=== PATIENT | male | born 1975 | race Caucasian/White ===

== ENCOUNTER 2023-03-05 23:18 | Emergency (ER) | payer OTHER ==
[2023-03-05] MEDS ORDERED: AMOX TR/POT CLAV 875MG/125MG TABLETS (FP) PO ONE (23:23)
[2023-03-05] MEDS ORDERED: LIDO 2%/EPI 1:200000 PRESRVFRE (20 ML SDVIAL) ONE (23:27)
[2023-03-05 23:28] VITALS: BP 107/73; PULSE 79; RESP 18; TEMP 98.1; BMI 24.1
[2023-03-05] MEDS ORDERED: LIDOCAINE 2%/EPINEPHRINE 1:100000 (50 ML MD VIAL) INF ONE (23:28)
[2023-03-05] MEDS ORDERED: AMOX TR/POT CLAV 875MG/125MG TABLETS (FP) ONE (23:30)
== END 2023-03-06 00:11 | disposition home or self-care (01) ==
LOC: FER 23:18
PROC: 0HQDXZZ Repair Right Lower Arm Skin, External Approach (ICD-10-PCS; principal; 2023-03-05)
DX: S51.811A Laceration without foreign body of right forearm, initial encounter (principal); W54.0XXA Bitten by dog, initial encounter
CPT/HCPCS: 99283-25